=== PATIENT | male | born 1950 | race Caucasian/White ===

== ENCOUNTER → 2018-09-26 | Outpatient (REF) | payer MEDICARE ==
[2018-09-26 13:23] LABS: HEMATOCRIT 44.5 % (42.0-52.0); HEMOGLOBIN 14.7 g/dl (13.5-17.5); MEAN CORPUSCULAR HEMOGLOBIN 29.6 pg (27.0-33.0); MEAN CORPUSCULAR VOLUME 89.7 fl (80.0-96.0); PLATELET COUNT, AUTOMATED 196 10^3/uL (150-450); RED BLOOD COUNT 4.96 10^6/uL (4.30-6.10); WHITE BLOOD COUNT 4.5 10^3/uL (4.0-10.0)
[2018-09-26 13:33] LABS: ALBUMIN 3.8 GM/DL (3.2-5.2); ALT/SGPT 22 U/L (12-78); BILIRUBIN,TOTAL 0.9 MG/DL (0.2-1.0); BLOOD UREA NITROGEN 19 MG/DL (7-18); CALCIUM LEVEL 8.8 MG/DL (8.8-10.2); CARBON DIOXIDE LEVEL 27 MEQ/L (21-32); CHLORIDE LEVEL 106 MEQ/L (98-107); CREATININE FOR GFR 0.84 MG/DL (0.70-1.30); GLOMERULAR FILTRATION RATE > 60.0 (>49); GLUCOSE, FASTING 91 MG/DL (70-100); NT-PRO BNP 183 PG/ML (<125); POTASSIUM SERUM 4.3 MEQ/L (3.5-5.1); SODIUM LEVEL 140 MEQ/L (136-145); TOTAL PROTEIN 6.9 GM/DL (6.4-8.2)
== END ==
LOC: M LABDRAWC 11:13
PROVIDERS: ATTEND Internal Medicine Cardiovascular Disease
DX: I48.0 Paroxysmal atrial fibrillation (principal); R94.31 Abnormal electrocardiogram [ECG] [EKG]

== ENCOUNTER → 2020-06-11 | Outpatient (CLI) | payer MEDICARE ==
--- NOTE | 2020-06-16 15:20 | REP ---
RIGHT LOWER EXTREMITY DUPLEX VENOUS ULTRASOUND WITH REFLUX ASSESSMENT HISTORY: Nonpressure ulcer. Rule out venous insufficiency and deep vein thrombosis (DVT). FINDINGS: There is a history of right lower extremity thrombus. Todays study demonstrates several foci of echogenic nonocclusive striation in the right femoral vein and right popliteal vein consistent with chronic DVT. This is most pronounced in the right femoral vein. There is no evidence of occlusive deep vein thrombosis. Color flow and spectral Doppler interrogation are otherwise unremarkable. The deep veins are otherwise anechoic and compressible. REFLUX FINDINGS: Venous reflux was observed in the deep system from the common femoral vein to the popliteal vein. Reflux greater than 0.5 seconds. Patient reports previous greater saphenous vein stripping 15 years prior. The proximal stump of the greater saphenous vein is 9.6 mm in diameter and demonstrates 4.2 second duration reflux. The patient reports previous greater saphenous vein stripping approximately 15 years prior. Greater saphenous vein for a collateral appears to have developed. This measures 9.6 mm in AP dimension proximally at the junction with the femoral vein and a 4.2 second duration reflux is observed here. This greater saphenous vein measures 3.4 mm at mid thigh without observable reflux and 2.8 mm in dimension at the knee without reflux. Lesser saphenous vein is 1.7 mm in diameter without evidence of reflux. Multiple varicosities are seen in the calf, but they do not appear to arise from the greater or lesser saphenous vein. IMPRESSION: Deep system reflux. There is evidence of chronic deep vein thrombosis (DVT) in the femoral vein and popliteal vein, nonocclusive. [facility]
== END ==
LOC: M RAD 08:27
PROVIDERS: ATTEND Surgery
DX: L97.812 Non-pressure chronic ulcer of other part of right lower leg with fat layer exposed (principal); I82.411 Acute embolism and thrombosis of right femoral vein; I82.431 Acute embolism and thrombosis of right popliteal vein

== ENCOUNTER → 2020-09-07 | Outpatient (POV) | payer MEDICARE ==
--- NOTE | 2020-09-09 11:55 | IRCOV ---
[facility] IR Consult Office Visit IR Consult Office Visit DATE: Sep 07, 2020 Patient agreed to this telephone consultation. I spent 30 minutes reviewing patient's records and talking to the patient. REASON FOR CONSULTATION/CHIEF COMPLAINT: Nonhealing right lower extremity venous stasis ulcer. 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 He is very active and is on his feet all day. He is a nonsmoker. He states his right leg increasingly swells up during the course of the day and is uncomfortable. He reports prior right GSV ligation 15 years ago and multiple vein stripping procedures. He denies any prior deep vein thrombosis. Interestingly he states he saw vascular surgery in [place] in 2017 at which time his left groin was stented. He states his right leg symptoms improved after that stenting procedure. He denies calf claudication or pain with leg elevation. Denies chest pain, shortness of breath, orthopnea or paroxysmal nocturnal dyspnea. ALLERGIES: Please see below. HOME MEDICATIONS: Please see below. PAST MEDICAL HISTORY: Atrial fibrillation Cellulitis PAST SURGICAL HISTORY: Right GSV ligation 15 years ago Multiple right leg venous strippings. Left groin stent in 2017. FAMILY HISTORY: Noncontributory. SOCIAL HISTORY: Nonsmoker. Denies heavy alcohol or drugs. REVIEW OF SYSTEMS: Otherwise negative. PHYSICAL EXAMINATION: No video on patient side. LABORATORY DATA: No recent labs in system. Imaging: I personally reviewed the right lower extremity venous reflux study performed in June 2020. Ligated GSV. Dilated anterior accessory GSV without reflux. Superficial varicosities below the knee are noted. ASSESSMENT/PLAN: 69-year-old male with chronic right lower extremity venous hypertension refractory to GSV ligation and venous strippings. Right lower extremity ultrasound demonstrates ligated GSV and no significant reflux in anterior accessory GSV. No large collaterals or perforators eligible for EVLT therapy. Local treatment with sclerotherapy may be an option however given his chronic history and numerous procedures, I wonder how much this would really help. Given his improvement in symptoms for a couple years, post his left iliac vein stenting I would like to perform a pelvic venogram and assess his current central venous drainage. If there is IntraStent stenosis and/or right iliac im pingement or stenosis, this may be amenable to therapy. We discussed the risks and benefits of the procedure and patient would like to proceed. We'll schedule the patient for this procedure. Thank you for this referral. CC SHARLA Uribe MD Sep 09, 2020 11:55
== END ==
LOC: M TMIRPOV 15:47
PROVIDERS: ATTEND Radiology Diagnostic Radiology
DX: I87.301 Chronic venous hypertension (idiopathic) without complications of right lower extremity (principal); I48.91 Unspecified atrial fibrillation

== ENCOUNTER → 2020-10-12 | Outpatient (CLI) | payer MEDICARE ==
[2020-10-12 16:25] LABS: BASO % 0.5 % (0.0-1.0); EOS # 0.2 10^3/uL (0.0-0.5); EOS % 2.7 % (0.0-3.0); HEMATOCRIT 44.5 % (42.0-52.0); LYMPH # 1.7 10^3/uL (1.5-5.0); LYMPH % 27.1 % (24.0-44.0); MEAN CORPUSCULAR HEMOGLOBIN 29.2 pg (27.0-33.0); MEAN CORPUSCULAR HGB CONC 31.5 g/dl (32.0-36.5); MEAN CORPUSCULAR VOLUME 92.9 fl (80.0-96.0); MONO # 0.8 10^3/uL (0.0-0.8); NEUTROPHILS # 3.6 10^3/uL (1.5-8.5); NEUTROPHILS % 57.2 % (36.0-66.0); PLATELET COUNT, AUTOMATED 187 10^3/uL (150-450); RED BLOOD COUNT 4.79 10^6/uL (4.30-6.10); WHITE BLOOD COUNT 6.3 10^3/uL (4.0-10.0)
[2020-10-12 16:56] LABS: ALBUMIN 3.4 GM/DL (3.2-5.2); ALT/SGPT 21 U/L (12-78); BILIRUBIN,TOTAL 0.8 MG/DL (0.2-1.0); BLOOD UREA NITROGEN 24 MG/DL (7-18); CALCIUM LEVEL 8.7 MG/DL (8.8-10.2); CARBON DIOXIDE LEVEL 33 MEQ/L (21-32); CHLORIDE LEVEL 106 MEQ/L (98-107); CREATININE FOR GFR 0.97 MG/DL (0.70-1.30); GLOMERULAR FILTRATION RATE > 60.0 (>42); GLUCOSE, FASTING 84 MG/DL (70-100); NT-PRO BNP 230 PG/ML (<125); POTASSIUM SERUM 4.1 MEQ/L (3.5-5.1); SODIUM LEVEL 143 MEQ/L (136-145); TOTAL PROTEIN 6.2 GM/DL (6.4-8.2)
== END ==
LOC: M WUC 13:03
PROVIDERS: ATTEND Internal Medicine Cardiovascular Disease
DX: I50.42 Chronic combined systolic (congestive) and diastolic (congestive) heart failure (principal); I48.0 Paroxysmal atrial fibrillation; R94.31 Abnormal electrocardiogram [ECG] [EKG]; I34.0 Nonrheumatic mitral (valve) insufficiency

== ENCOUNTER → 2020-10-14 | Outpatient (CLI) | payer MEDICARE ==
[~2020-10-14] MED LIST: ATOR40TA75 PO; BENA25TA5 PO; CARV6.25 PO; GABA-282 PO; ISOVUE-300 61% 50ML VIAL As Ordered ONE; LIDOCAINE 1% MDV 20ML VIAL As Ordered ONE; LOSA25TA14 PO; MIDAZOLAM INJ 2MG/2ML VIAL (J2250 PER 1MG) As Ordered ONE; XARE10TA PO; diphenhydrAMINE 50MG/ML VIAL (J1200) As Ordered ONE; fentaNYL 100 MCG/2 ML INJECTION (J3010) As Ordered ONE; methylPREDNISolone 125MG 2ML VIAL As Ordered ONE
--- NOTE | 2020-10-14 09:33 | IRHP ---
[facility] IR Pre-Procedure H & P General Date of Service: Oct 14, 2020 Procedure: Same Day Surgery Interval History and Physical I have seen the patient and reviewed last H & P performed within 30 days. There is no significant interval change. History of Present Illness Chief Complaint The patient is a 69-year-old male admitted with a reason for visit of Iliac Occlusion. PRE-PROCEDURE DIAGNOSIS: iliac occlusion HEART: normal rate. LUNGS: normal breathing at rest. ASA Classification ASA Classification: III-Severe systemic dis. Mallampati Score: II NPO: Yes Problems with prior sedation: No Obstructive Sleep Apnea: No Plan moderate sedation Allergies Coded Allergies: acetaminophen (Verified Allergy, Mild, 10/14/20) unknown amoxicillin (Verified Allergy, Mild, 10/14/20) unknown hydrocodone (Verified Allergy, Mild, 10/14/20) unknown naproxen (Verified Allergy, Mild, 10/14/20) unknown sacubitril (Verified Allergy, Mild, 10/14/20) unknown valsartan (Verified Allergy, Mild, 10/14/20) unknown Home Medications Miscellaneous Medications Atorvastatin Calcium (Atorvastatin Calcium), (Reported) Carvedilol (Carvedilol), (Reported) Gabapentin (Gabapentin), (Reported) Losartan Potassium (Losartan Potassium), (Reported) Rivaroxaban (Xarelto), (Reported) diphenhydrAMINE HCl (Benadryl Allergy), (Reported) VS, I&O, 24H, Fishbone Vital Signs/I&O Vital Signs Date Time Temp Pulse Resp B/P (MAP) Pulse Ox O2 Delivery O2 Flow Rate FiO2 10/14/20 08:55 97.9 72 18 99 Room Air SHARLA FULLER MD Oct 14, 2020 09:33
[2020-10-14 12:30] VITALS: BP 103/74
--- NOTE | 2020-10-15 10:33 | POST-OPPD ---
Postoperative Procedure Note Date Of Procedure: Oct 14, 2020 Time Of Procedure: 16:00 IR RIGHT ILIAC VENOGRAM. INFERIOR VENA CAVOGRAM. ULTRASOUND OF THE RIGHT GROIN. Clinical Information:Right lower extremity venous hypertension with venous stasis ulcer. Prior iliac stenting. Referred for evaluation of central venous drainage. Physician: Dr. Ferreira. Procedure: The patient was advised of the benefits, risks, and alternatives of the procedure and informed consent was obtained. A time out was performed with verification of the patient's name, MRN, site of procedure, and type of procedure to be performed. The patient was positioned in the supine position on the angiographic table. The site was prepped and draped in the usual sterile fashion. Moderate sedation was performed by the physician including the presence of an independent trained RN, who assisted in monitoring the patient's level of consciousness and physiological status. Following the administration of fentanyl and Versed, the physician spent 45 minutes of continuous [id number] time with the patient. Preliminary ultrasound of the right groin was performed, demonstrating patent and compressible right common femoral vein. A housing management representative radiograph demonstrates a stent in the right common iliac vein region. The right common femoral vein was accessed under ultrasound guidance, using a micropuncture kit. An 0.035 wire was placed into the peripheral inferior vena cava. A venogram was performed which demonstrates widely patent right common iliac stent and patent inferior vena cava with no obstruction to flow. No filling of cross pelvic collaterals. No reflux into the right femoral vein. Access was removed, pressure held and hemostasis achieved. A sterile dressing was applied to the site. The patient tolerated the procedure well and was returned to the PRU in stable condition. EBL: <5 mL. Complications:None. Conclusions: 1. Patient has a right common iliac vein stent which is widely patent. 2. Central venogram demonstrates no iliac or central obstruction to right lower extremity venous drainage. Thank you for this referral CC SHARLA Uribe MD Oct 15, 2020 10:33
== END ==
LOC: M IRPRO 08:41
PROVIDERS: ATTEND Radiology Diagnostic Radiology
DX: I87.311 Chronic venous hypertension (idiopathic) with ulcer of right lower extremity (principal); Z88.1 Allergy status to other antibiotic agents; Z88.6 Allergy status to analgesic agent; Z88.8 Allergy status to other drugs, medicaments and biological substances
CPT/HCPCS: 36010; 75820; 99152; 99153; C1769; C1887; C1894; J1200; J1644; J2250; J3010; Q9967

== ENCOUNTER → 2021-01-18 | Outpatient (POV) | payer MEDICARE ==
[~2021-01-18] VITALS: Ht 177.8 cm; Wt 102.3 kg
[~2021-01-18] MED LIST changes: -ISOVUE-300 61% 50ML VIAL As Ordered ONE; -LIDOCAINE 1% MDV 20ML VIAL As Ordered ONE; -MIDAZOLAM INJ 2MG/2ML VIAL (J2250 PER 1MG) As Ordered ONE; -diphenhydrAMINE 50MG/ML VIAL (J1200) As Ordered ONE; -fentaNYL 100 MCG/2 ML INJECTION (J3010) As Ordered ONE; -methylPREDNISolone 125MG 2ML VIAL As Ordered ONE
[2021-01-18 16:18] VITALS: BP 121/69
--- NOTE | 2021-01-19 17:46 | IRPN ---
[facility] IR Progress Note IR Progress Note DATE: January 18, 2021 FOLLOW-UP: Patient presents for a right groin lump which he noticed, comes and goes. He wondered if this was related to his prior right common femoral vein access and venogram in October. ON EXAMINATION: Right groin access site over common femoral vein is soft nontender, no mass, bruising or lump. What he is referring to is a lump more medially in the right inguinal region. IMPRESSION: Incidentally observed right-sided inguinal hernia, nontender. Patien t would like a referral to surgery. We will refer the patient to surgery. Thank you for this referral. Cc Dr. Varela Allergies Coded Allergies: acetaminophen (Verified Allergy, Mild, 10/14/20) unknown amoxicillin (Verified Allergy, Mild, 10/14/20) unknown hydrocodone (Verified Allergy, Mild, 10/14/20) unknown naproxen (Verified Allergy, Mild, 10/14/20) unknown sacubitril (Verified Allergy, Mild, 10/14/20) unknown valsartan (Verified Allergy, Mild, 10/14/20) unknown VS,Fishbone, I+O VS, Fishbone, I+O Vital Signs Date Time Temp Pulse Resp B/P (MAP) Pulse Ox O2 Delivery O2 Flow Rate FiO2 01/18/21 16:18 98.6 69 20 121/69 (86) 96 Room Air SHARLA FULLER MD January 19, 2021 17:46
== END ==
LOC: M IRPOV 16:05
PROVIDERS: ATTEND Radiology Diagnostic Radiology
DX: K40.90 Unilateral inguinal hernia, without obstruction or gangrene, not specified as recurrent (principal); Z88.1 Allergy status to other antibiotic agents; Z88.6 Allergy status to analgesic agent; Z88.8 Allergy status to other drugs, medicaments and biological substances

== ENCOUNTER → 2021-02-21 | Outpatient (CLI) | payer MEDICARE ==
[2021-02-21 18:37] LABS: ALBUMIN 3.8 GM/DL (3.2-5.2); ALT/SGPT 26 U/L (12-78); BILIRUBIN,TOTAL 0.6 MG/DL (0.2-1.0); BLOOD UREA NITROGEN 23 MG/DL (7-18); CALCIUM LEVEL 8.7 MG/DL (8.8-10.2); CARBON DIOXIDE LEVEL 25 MEQ/L (21-32); CHLORIDE LEVEL 107 MEQ/L (98-107); CREATININE FOR GFR 1.18 MG/DL (0.70-1.30); GLOMERULAR FILTRATION RATE > 60.0 (>42); GLUCOSE, FASTING 80 MG/DL (70-100); MAGNESIUM LEVEL 2.4 MG/DL (1.8-2.4); NT-PRO BNP 771 PG/ML (<125); POTASSIUM SERUM 4.4 MEQ/L (3.5-5.1); SODIUM LEVEL 139 MEQ/L (136-145); TOTAL PROTEIN 6.7 GM/DL (6.4-8.2)
== END ==
LOC: M LAB 15:14
PROVIDERS: ATTEND Physician Assistant
DX: I50.42 Chronic combined systolic (congestive) and diastolic (congestive) heart failure (principal); I48.0 Paroxysmal atrial fibrillation

== ENCOUNTER → 2021-05-23 | Outpatient (CLI) | payer MEDICARE ==
[~2021-05-23] MED LIST changes: +AMIO200T3 PO; +APAP325T4 PO; +CETI10TA4 PO; +SYNT25TA PO; +TORS5TAB2 PO
== END ==
LOC: M LABSMTC 09:30
PROVIDERS: ATTEND Anesthesiology
DX: Z01.812 Encounter for preprocedural laboratory examination (principal)

== ENCOUNTER 2021-05-27 06:57 | Day surgery (SDC) | payer MEDICARE ==
[~2021-05-27] VITALS: Ht 177.8 cm; Wt 89.8 kg
[~2021-05-27 06:57] MED LIST changes: +LIDOCAINE 1% MDV 20ML VIAL SQ PRN; +LR 1,000 ML IV ONE
[2021-05-27] MEDS ORDERED: LevoFLOXacin IV 500 MG in IV 1 EA IV ONE (07:40)
[2021-05-27] MEDS ORDERED: BUPIVACAINE/EPIN 0.25% 30 ML VIAL As Ordered ONE (07:53)
[2021-05-27] MEDS ORDERED: LIDOCAINE 2% 100MG/5ML SDV (FOR ANES.) As Ordered ONE (07:54)
[2021-05-27] MEDS ORDERED: ROCURONIUM BROMIDE 50 MG/5 ML VIAL As Ordered ONE (07:54)
[2021-05-27] MEDS ORDERED: propofoL 200 MG/20 ML VIAL As Ordered ONE (07:54)
[2021-05-27] MEDS ORDERED: fentaNYL 250 MCG/5 ML INJECTION (J3010) As Ordered ONE (07:54)
[2021-05-27] MEDS ORDERED: MIDAZOLAM INJ 2MG/2ML VIAL (J2250 PER 1MG) As Ordered ONE (07:55)
[2021-05-27] MEDS ORDERED: LACRILUBE (AKWA TEARS) OPHTH OINT 3.5 GM As Ordered ONE (08:42)
[2021-05-27] MEDS ORDERED: METOCLOPRAMIDE INJ 10MG/2ML VIAL (J2765 PER 1) As Ordered ONE (09:13)
[2021-05-27] MEDS ORDERED: dexameTHASONE 4 MG/ML 1ML VIAL (J1100 PER 1MG) As Ordered ONE (09:13)
[2021-05-27] MEDS ORDERED: SUGAMMADEX SODIUM 500 MG/5 ML VIAL (BRIDION) As Ordered ONE (09:13)
[2021-05-27] MEDS ORDERED: ONDANSETRON 4MG/2ML VIAL As Ordered ONE (09:13)
[2021-05-27] MEDS ORDERED: ACETAMINOPHEN 1000MG 100ML IV BTL (OFIRMEV) (J0131 PER 10MG) As Ordered ONE (09:13)
[2021-05-27] MEDS ORDERED: MORPHINE 2 MG/ML 1ML VIAL (J2270) As Ordered ONE (10:44)
[2021-05-27] MEDS ORDERED: fentaNYL 100 MCG/2 ML INJECTION (J3010) IV PRN (10:45)
[2021-05-27] MEDS ORDERED: MORPHINE 2 MG/ML 1ML VIAL (J2270) IV PRN (10:45)
[2021-05-27] MEDS ORDERED: LR 1,000 ML IV SCH (10:45)
[2021-05-27] MEDS ORDERED: ONDANSETRON 4MG/2ML VIAL IV PRN ×2 (10:45→10:55)
[2021-05-27] MEDS ORDERED: NS 1,000 ML IV SCH (10:50)
[2021-05-27] MEDS: PERCOCET 5MG/325MG TAB PO PRN ×2 (10:54→11:48)
[2021-05-27] MEDS ORDERED: PERCOCET 5MG/325MG TAB PO PRN (10:55)
[2021-05-27 12:00] VITALS: BP 133/71
--- NOTE | 2021-05-28 16:17 | RO ---
OPERATIVE NOTE DATE OF OPERATION: 05/27/2021 PREOPERATIVE DIAGNOSIS: Right inguinal hernia. POSTOPERATIVE DIAGNOSIS: Right inguinal hernia. PROCEDURE: Robotic assisted laparoscopic right inguinal hernia repair with Prograf mesh. SURGEON: Brian Varela MD STE[employer] SHOVEL OILER: ANESTHESIA: General endotracheal anesthesia. ESTIMATED BLOOD LOSS: Minimal. FLUIDS: Crystalloids. BRIEF PROCEDURE SUMMARY: The patient was brought to the operating room, was given general anesthesia. After adequate anesthesia and preoperative antibiotics were given, the patient was prepped and draped in the usual sterile fashion. Next, an epigastric incision was made with the skin knife. Blunt dissection was carried down to fascia. Fascia was entered with a Veress needle and insufflated to 15 mg of pressure. A dilating 8 mm trocar was placed and then two lateral 8 mm trocars were placed. Next, the patient was placed in steep Trendelenburg position and the robot was docked. The peritoneum was taken down on the right side with monopolar cut scissors with a combination of blunt and sharp dissection, as well as electrocautery. The hernia sac was mobilized off cord structures and eventually I was able to mobilize this quite nicely off the cord structures in the epigastric area. However, there was a great deal of scarring along this area and eventually I was able to take this down and I was right where the epigastrics met the vessels; but eventually once this was mobilized and off Tres's ligament at the lateral border of pubis, then a Prograf mesh was cut the patient the appropriate size and pressed into position and peritoneum closed over the top using 3-0 V-Loc suture. The abdomen was desulfated under direct visualization, all trocars were removed and the incisions were closed with 4-0 Vicryl. Steri-Strips and dry sterile dressing was applied. The patient was awakened and extubated and brought to the recovery room, awake, alert and hemodynamically stable. Sponge and needle counts correct times two.
== END 2021-05-27 12:05 | disposition home or self-care (01) ==
LOC: M SDC 06:57
PROVIDERS: ATTEND Surgery
DX: K40.90 Unilateral inguinal hernia, without obstruction or gangrene, not specified as recurrent (principal); I10 Essential (primary) hypertension; I48.91 Unspecified atrial fibrillation; K21.9 Gastro-esophageal reflux disease without esophagitis; E78.5 Hyperlipidemia, unspecified; I73.9 Peripheral vascular disease, unspecified; E03.9 Hypothyroidism, unspecified; N40.0 Benign prostatic hyperplasia without lower urinary tract symptoms; Z86.718 Personal history of other venous thrombosis and embolism; Z79.899 Other long term (current) drug therapy; Z79.01 Long term (current) use of anticoagulants; Z88.5 Allergy status to narcotic agent; Z88.0 Allergy status to penicillin; Z91.040 Latex allergy status; Z88.8 Allergy status to other drugs, medicaments and biological substances
CPT/HCPCS: 49650; C1781; J0131; J1100; J1956; J2250; J2270; J2405; J2765; J3010; S2900

== ENCOUNTER → 2021-09-12 | Outpatient (CLI) | payer MEDICARE ==
[~2021-09-12] MED LIST changes: -AMIO200T3 PO; +AMIO200T49 PO; -LIDOCAINE 1% MDV 20ML VIAL SQ PRN; +LOSA25TA13 PO; -LOSA25TA14 PO; -LR 1,000 ML IV ONE
[2021-09-12 14:29] LABS: BASO # 0.1 10^3/uL (0.0-0.2); BASO % 1.1 % (0.0-1.0); EOS # 0.1 10^3/uL (0.0-0.5); HEMOGLOBIN 14.8 g/dl (13.5-17.5); LYMPH # 1.6 10^3/uL (1.5-5.0); LYMPH % 28.5 % (24.0-44.0); MEAN CORPUSCULAR HEMOGLOBIN 30.3 pg (27.0-33.0); MEAN CORPUSCULAR HGB CONC 32.9 g/dl (32.0-36.5); MONO # 0.7 10^3/uL (0.0-0.8); MONO % 13.4 % (2.0-8.0); NEUTROPHILS % 54.3 % (36.0-66.0); PLATELET COUNT, AUTOMATED 215 10^3/uL (150-450); RED BLOOD COUNT 4.89 10^6/uL (4.30-6.10); WHITE BLOOD COUNT 5.5 10^3/uL (4.0-10.0)
[2021-09-12 15:23] LABS: ALBUMIN 3.6 GM/DL (3.2-5.2); ALT/SGPT 24 U/L (12-78); BILIRUBIN,TOTAL 0.4 MG/DL (0.2-1.0); BLOOD UREA NITROGEN 27 MG/DL (7-18); CALCIUM LEVEL 8.5 MG/DL (8.8-10.2); CARBON DIOXIDE LEVEL 29 MEQ/L (21-32); CHLORIDE LEVEL 106 MEQ/L (98-107); CREATININE FOR GFR 1.03 MG/DL (0.70-1.30); GLOMERULAR FILTRATION RATE > 60.0 (>42); GLUCOSE, FASTING 97 MG/DL (70-100); NT-PRO BNP 150 PG/ML (<125); POTASSIUM SERUM 4.5 MEQ/L (3.5-5.1); SODIUM LEVEL 140 MEQ/L (136-145); TOTAL PROTEIN 6.6 GM/DL (6.4-8.2)
== END ==
LOC: M LAB 13:24
PROVIDERS: ATTEND Internal Medicine Cardiovascular Disease
DX: I50.42 Chronic combined systolic (congestive) and diastolic (congestive) heart failure (principal); I48.0 Paroxysmal atrial fibrillation; E03.9 Hypothyroidism, unspecified

== ENCOUNTER → 2022-07-11 | Outpatient (CLI) | payer MEDICARE ==
[2022-07-11 18:28] LABS: BASO # 0.1 10^3/uL (0.0-0.2); EOS # 0.1 10^3/uL (0.0-0.5); EOS % 1.5 % (0.0-3.0); HEMATOCRIT 43.1 % (42.0-52.0); LYMPH # 1.9 10^3/uL (1.5-5.0); LYMPH % 23.9 % (24.0-44.0); MEAN CORPUSCULAR HEMOGLOBIN 30.1 pg (27.0-33.0); MEAN CORPUSCULAR HGB CONC 32.5 g/dl (32.0-36.5); MEAN CORPUSCULAR VOLUME 92.7 fl (80.0-96.0); MONO # 1.1 10^3/uL (0.0-0.8); NEUTROPHILS # 4.8 10^3/uL (1.5-8.5); PLATELET COUNT, AUTOMATED 216 10^3/uL (150-450); RED BLOOD COUNT 4.65 10^6/uL (4.30-6.10); WHITE BLOOD COUNT 8.1 10^3/uL (4.0-10.0)
[2022-07-11 19:14] LABS: ALBUMIN 3.6 GM/DL (3.2-5.2); BILIRUBIN,TOTAL 0.4 MG/DL (0.2-1.0); CALCIUM LEVEL 8.9 MG/DL (8.8-10.2); CREATININE FOR GFR 1.37 MG/DL (0.70-1.30); GLOMERULAR FILTRATION RATE 54.2 (>42); POTASSIUM SERUM 4.5 MEQ/L (3.5-5.1); THYROID STIMULATING HORMONE 11.6 uIU/ML (0.358-3.740); TOTAL PROTEIN 6.8 GM/DL (6.4-8.2)
== END ==
LOC: M LAB 17:58
PROVIDERS: ATTEND Internal Medicine Cardiovascular Disease
DX: I48.0 Paroxysmal atrial fibrillation (principal); I34.0 Nonrheumatic mitral (valve) insufficiency; I50.42 Chronic combined systolic (congestive) and diastolic (congestive) heart failure; I27.81 Cor pulmonale (chronic)

== ENCOUNTER → 2022-09-15 | Outpatient (CLI) | payer MEDICARE | LOC: M SLEEP HO 14:34 | PROVIDERS: ATTEND Internal Medicine Cardiovascular Disease | DX: I27.81 Cor pulmonale (chronic) (principal) ==

== ENCOUNTER → 2022-10-01 | Outpatient (CLI) | payer MEDICARE ==
[2022-10-01 13:12] LABS: ALBUMIN 3.3 G/DL (3.2-5.2); BLOOD UREA NITROGEN 16 MG/DL (9-23); CALCIUM LEVEL 8.9 MG/DL (8.3-10.6); CARBON DIOXIDE LEVEL 29 MMOL/L (20-31); CHLORIDE LEVEL 108 MMOL/L (98-107); GLOMERULAR FILTRATION RATE > 60.0 (>42); GLUCOSE, FASTING 95 MG/DL (74-106); PHOSPHORUS LEVEL 2.7 MG/DL (2.4-5.1); POTASSIUM SERUM 4.4 MMOL/L (3.5-5.1); SODIUM LEVEL 142 MMOL/L (136-145)
== END ==
LOC: M LAB 12:02
PROVIDERS: ATTEND Internal Medicine Cardiovascular Disease
DX: Z13.29 Encounter for screening for other suspected endocrine disorder (principal)

== ENCOUNTER → 2022-10-02 | Outpatient (CLI) | payer MEDICARE | LOC: M LAB 14:08 | PROVIDERS: ATTEND Internal Medicine Cardiovascular Disease | DX: I50.43 Acute on chronic combined systolic (congestive) and diastolic (congestive) heart failure (principal) ==

== ENCOUNTER → 2022-10-02 | Outpatient (CLI) | payer MEDICARE | LOC: M RAD 17:50 | PROVIDERS: ATTEND Internal Medicine Cardiovascular Disease | DX: I50.33 Acute on chronic diastolic (congestive) heart failure (principal) ==

== ENCOUNTER → 2022-10-10 | Outpatient (CLI) | payer MEDICARE ==
[2022-10-10 14:44] LABS: ALBUMIN 3.4 G/DL (3.2-5.2); BLOOD UREA NITROGEN 29 MG/DL (9-23); CALCIUM LEVEL 8.2 MG/DL (8.3-10.6); CARBON DIOXIDE LEVEL 29 MMOL/L (20-31); CHLORIDE LEVEL 105 MMOL/L (98-107); CREATININE FOR GFR 1.25 MG/DL (0.70-1.30); GLOMERULAR FILTRATION RATE > 60.0 (>42); GLUCOSE, FASTING 112 MG/DL (74-106); PHOSPHORUS LEVEL 3.9 MG/DL (2.4-5.1); POTASSIUM SERUM 4.3 MMOL/L (3.5-5.1); SODIUM LEVEL 140 MMOL/L (136-145)
[2022-10-10 14:46] LABS: FREE T4 2.11 NG/DL (0.89-1.76); THYROID STIMULATING HORMONE 0.019 uIU/ML (0.55-4.78); THYROXINE (T4) 13.4 UG/DL (4.5-10.9)
[2022-10-10 14:47] LABS: T UPTAKE 53.3 % (22.5-37.0)
== END ==
LOC: M LAB 13:04
PROVIDERS: ATTEND Internal Medicine Cardiovascular Disease
DX: I50.33 Acute on chronic diastolic (congestive) heart failure (principal); I48.0 Paroxysmal atrial fibrillation

== ENCOUNTER → 2022-12-06 | Outpatient (CLI) | payer MEDICARE ==
[2022-12-06 13:48] LABS: ALBUMIN 3.6 G/DL (3.2-5.2); BLOOD UREA NITROGEN 21 MG/DL (9-23); CALCIUM LEVEL 8.7 MG/DL (8.3-10.6); CARBON DIOXIDE LEVEL 33 MMOL/L (20-31); CHLORIDE LEVEL 105 MMOL/L (98-107); CREATININE FOR GFR 1.02 MG/DL (0.70-1.30); GLOMERULAR FILTRATION RATE > 60.0 (>42); GLUCOSE, FASTING 88 MG/DL (74-106); POTASSIUM SERUM 4.8 MMOL/L (3.5-5.1); SODIUM LEVEL 142 MMOL/L (136-145)
[2022-12-06 13:49] LABS: FREE T4 1.46 NG/DL (0.89-1.76)
== END ==
LOC: M LAB 12:23
PROVIDERS: ATTEND Internal Medicine Cardiovascular Disease
DX: I50.33 Acute on chronic diastolic (congestive) heart failure (principal); I48.0 Paroxysmal atrial fibrillation

== ENCOUNTER → 2023-02-24 | Outpatient (CLI) | payer MEDICARE | LOC: M RAD 08:57 | PROVIDERS: ATTEND Podiatrist | DX: M65.272 Calcific tendinitis, left ankle and foot (principal); M72.2 Plantar fascial fibromatosis; M65.872 Other synovitis and tenosynovitis, left ankle and foot; S86.012A Strain of left Achilles tendon, initial encounter; X58.XXXA Exposure to other specified factors, initial encounter; Y92.9 Unspecified place or not applicable; Y93.9 Activity, unspecified; Y99.9 Unspecified external cause status ==

== ENCOUNTER → 2023-08-22 | Outpatient (CLI) | payer MEDICARE ==
[2023-08-22 11:11] LABS: BASO # 0.1 10^3/uL (0.0-0.2); BASO % 1.1 % (0.0-1.0); EOS # 0.1 10^3/uL (0.0-0.5); EOS % 2.4 % (0.0-3.0); HEMOGLOBIN 14.4 g/dl (13.5-17.5); LYMPH # 1.4 10^3/uL (1.5-5.0); LYMPH % 26.7 % (24.0-44.0); MEAN CORPUSCULAR HEMOGLOBIN 29.9 pg (27.0-33.0); MEAN CORPUSCULAR HGB CONC 32.7 g/dl (32.0-36.5); MEAN CORPUSCULAR VOLUME 91.5 fl (80.0-96.0); MONO # 0.7 10^3/uL (0.0-0.8); MONO % 12.8 % (2.0-8.0); NEUTROPHILS % 56.6 % (36.0-66.0); PLATELET COUNT, AUTOMATED 212 10^3/uL (150-450); RED BLOOD COUNT 4.81 10^6/uL (4.30-6.10); WHITE BLOOD COUNT 5.3 10^3/uL (4.0-10.0)
[2023-08-22 11:39] LABS: ALBUMIN 3.6 G/DL (3.2-5.2); ALKALINE PHOSPHATASE 62 U/L (46-116); ALT/SGPT 16 U/L (7.0-40); AST/SGOT 16 U/L (<34); BILIRUBIN,TOTAL 0.8 MG/DL (0.3-1.2); BLOOD UREA NITROGEN 27 MG/DL (9-23); CALCIUM LEVEL 9.5 MG/DL (8.3-10.6); CARBON DIOXIDE LEVEL 31 MMOL/L (20-31); CHLORIDE LEVEL 108 MMOL/L (98-107); CREATININE FOR GFR 1.04 MG/DL (0.70-1.30); GLOMERULAR FILTRATION RATE > 60.0 (>42); GLUCOSE, FASTING 58 MG/DL (74-106); POTASSIUM SERUM 4.4 MMOL/L (3.5-5.1); SODIUM LEVEL 144 MMOL/L (136-145); TOTAL PROTEIN 6.4 G/DL (5.7-8.2)
[2023-08-22 11:41] LABS: THYROID STIMULATING HORMONE 7.181 uIU/ML (0.55-4.78)
== END ==
LOC: M RAD 10:27
PROVIDERS: ATTEND Internal Medicine Cardiovascular Disease
DX: I50.32 Chronic diastolic (congestive) heart failure (principal); E03.2 Hypothyroidism due to medicaments and other exogenous substances; I48.0 Paroxysmal atrial fibrillation

== ENCOUNTER → 2024-04-30 | Outpatient (CLI) | payer MEDICARE ==
[~2024-04-30] MED LIST changes: +ISOVUE-370 76% 100ML VIAL As Ordered ONE
[2024-04-30 08:22] LABS: BLOOD UREA NITROGEN 30 MG/DL (9-23); CREATININE FOR GFR 0.91 MG/DL (0.70-1.30); GLOMERULAR FILTRATION RATE > 60.0 (>42)
== END ==
LOC: M RAD 06:45
PROVIDERS: ATTEND Physician Assistant
DX: I87.331 Chronic venous hypertension (idiopathic) with ulcer and inflammation of right lower extremity (principal)
CPT/HCPCS: 36415; 75635; 82565; 84520; Q9967

== ENCOUNTER → 2024-05-27 | Outpatient (CLI) | payer MEDICARE ==
[~2024-05-27] MED LIST changes: -ISOVUE-370 76% 100ML VIAL As Ordered ONE
== END ==
LOC: M RAD 13:42
PROVIDERS: ATTEND Physician Assistant
DX: I87.331 Chronic venous hypertension (idiopathic) with ulcer and inflammation of right lower extremity (principal)

== ENCOUNTER → 2025-07-24 | Outpatient (CLI) | payer MEDICARE ==
[~2025-07-24] MED LIST changes: -AMIO200T49 PO; +AMIO200T54 PO; +GABA-1172 PO; -GABA-282 PO
[2025-07-24 10:54] LABS: BASO # 0.1 10^3/uL (0.0-0.2); BASO % 1.1 % (0.0-1.0); EOS # 0.1 10^3/uL (0.0-0.5); EOS % 1.6 % (0.0-3.0); LYMPH # 1.4 10^3/uL (1.5-5.0); LYMPH % 30.2 % (24.0-44.0); MONO # 0.6 10^3/uL (0.0-0.8); MONO % 12.3 % (2.0-8.0); NEUTROPHILS # 2.4 10^3/uL (1.5-8.5); NEUTROPHILS % 54.4 % (36.0-66.0); PLATELET COUNT, AUTOMATED 219 10^3/uL (150-450)
[2025-07-24 11:22] LABS: ALT/SGPT 19.0 U/L (7.0-40); AST/SGOT 23.0 U/L (<34); CALCIUM LEVEL 8.8 MG/DL (8.3-10.6); CARBON DIOXIDE LEVEL 30.0 MMOL/L (20-31); CHLORIDE LEVEL 104.0 MMOL/L (98-107); CHOLESTEROL LEVEL 161.0 MG/DL (<200); CHOLESTEROL RISK RATIO 2.64 (<5); CREATININE FOR GFR 0.91 MG/DL (0.70-1.30); GLOMERULAR FILTRATION RATE 87.4 (>42); LDL CHOLESTEROL 87.3 MG/DL (<100); NON-HDL-C 100.1 MG/DL; POTASSIUM SERUM 4.6 MMOL/L (3.5-5.1); SODIUM LEVEL 143.0 MMOL/L (136-145); TRIGLYCERIDES LEVEL 64.0 MG/DL (<150)
[2025-07-24 11:27] LABS: FREE T4 0.96 NG/DL (0.89-1.76)
== END ==
LOC: M LAB 09:15
PROVIDERS: ATTEND Physician Assistant
DX: I50.42 Chronic combined systolic (congestive) and diastolic (congestive) heart failure (principal); R94.31 Abnormal electrocardiogram [ECG] [EKG]; I48.0 Paroxysmal atrial fibrillation

== ENCOUNTER → 2025-07-29 | Outpatient (CLI) | payer MEDICARE | LOC: M EKG 07:48 | PROVIDERS: ATTEND Physician Assistant | DX: I48.0 Paroxysmal atrial fibrillation (principal) ==